=== PATIENT | female | born 1990 | race Caucasian/White ===

== ENCOUNTER 2017-02-14 14:51 | Emergency (ER) | payer OTHER ==
[2017-02-14 15:11] VITALS: RESP 18; TEMP 97.1
[2017-02-14] MEDS ORDERED: DIPH,PERTUS(ACELL)TETVAC-LF 0.5 ML VIAL IM ONE (15:25)
--- NOTE | 2017-02-14 15:50 | XR ---
EXAMINATION TYPE: XR foot complete LT DATE OF EXAM: 02/14/2017 COMPARISON: NONE HISTORY: Pain TECHNIQUE: Three views are submitted. FINDINGS: The osseous structures are intact and the joint spaces are preserved. Mild hypertrophic change first MTP. Small plantar calcaneal spur. There is no acute fracture or dislocation. IMPRESSION: 1. No acute fracture or dislocation. If symptoms persist, follow-up exam in 7 to 10 days could be ob tained. 2. Small plantar calcaneal spur.
--- NOTE | 2017-02-14 16:01 | ED ---
General Adult HPI - General Chief complaint: Wound/Laceration Stated complaint: left foot laceration Time Seen by Provider: 02/14/17 15:20 Source: patient Mode of arrival: wheelchair Limitations: no limitations - History of Present Illness Initial comments: This is a 27-year-old female who presents to the emergency department with chief complaint of left foot laceration. Patient states that approximately one hour prior to arrival she was holding a metal ramp at about a height of 4 feet when it fell from her hands and landed on her left foot. Patient states that her foot is tender and that the laceration she sustained had moderate amount of bleeding. She is unsure if she is up-to-date with her tetanus vaccination. Denies fever, chills, chest pain, shortness of breath, abdominal pain, nausea or vomiting, constipation or diarrhea, dysuria or hematuria, numbness or tingling, headache or vision changes. - Related Data Previous Rx's Medication Instructions Recorded Cephalexin [Keflex] 500 mg PO Q12HR #14 cap 02/14/17 Allergies Allergy/AdvReac Type Severity Reaction Status Date / Time latex Allergy Rash/Hives Verified 02/14/17 15:08 Sulfa (Sulfonamide Allergy Unknown Verified 02/14/17 15:08 Antibiotics) Childhood Review of Systems ROS Statement: Those systems with pertinent positive or pertinent negative responses have been documented in the HPI. ROS Other: All systems not noted in ROS Statement are negative. Past Medical History Past Medical History: Thyroid Disorder Additional Past Medical History / Comment(s): ovarian cyst History of Any Multi-Drug Resistant Organisms: None Reported Past Surgical History: Section Past Anesthesia/Blood Transfusion Reactions: Motion Sickness Additional Past Anesthesia/Blood Transfusion Reaction / Comment(s): pt states has never received anesthesia. mother hx "hard time coming out of anesthesia. brother- "angry coming out of anesthesia Past Psychological History: No Psychological Hx Reported Smoking Status: Never smoker Past Alcohol Use History: None Reported Past Drug Use History: None Reported - Past Family History Mother Family Medical History: Cancer Additional Family Medical History / Comment(s): cervical and skin cancer General Exam - General Exam Comments Initial Comments: General: Awake and alert, well-developed; in no apparent distress. HEENT: Head atraumatic, normocephalic. Pupils are equal, round and reactive to light. Extraocular movements intact. Neck: Supple. Normal ROM. Cardiovascular: Regular rate and rhythm. No murmurs, rubs or gallops. Chest symmetrical. Respiratory: Lungs clear to auscultation bilaterally. No wheezes, rales or rhonchi. Normal respiratory effort with no use of accessory muscles. Musculoskeletal: There is a 2 cm linear laceration at midline of dorsal left foot. Mild swelling and tenderness is noted. Pedal pulses 2+ equal and palpable bilaterally. Sensation is intact. Range of motion of ankle and toes are intact. righSkin: Carter, warm and dry without rashes or lesions. Neurological: Alert and oriented x3. CN II-XII grossly intact. Speech is fluent and answers are appropriate. No focal neuro deficits. Psychiatric: Normal mood and affect. No overt signs of depression or anxiety noted. Limitations: no limitations Course Vital Signs 02/14/17 02/14/17 15:08 16:58 Temperature 97.1 F L 97.1 F L Pulse Rate 98 78 Respiratory 18 18 Rate Blood Pressure 134/79 130/70 O2 Sat by Pulse 98 98 Oximetry Procedures - Laceration Laceration #1 Consent Obtained: verbal consent Indication: laceration Site: foot (left dorsal foot) Size (cm): 2 Description: linear Depth: simple, single layer Anesthetic Used: lidocaine 1% Anesthesia Technique: local infiltration Amount (mls): 3 Pre-repair: wound explored, irrigated extensively, deep structures intact Type of Sutures: nylon Size of Sutures: 4-0 Number of Sutures: 5 Technique: simple, interrupted Patient Tolerated Procedure: well, no complications Medical Decision Making - Medical Decision Making This is a 27 year old female who presented to the emergency department with chief complaint of left foot laceration. Patient received 5 sutures and tolerated the procedure well. Patient was discharged home with a prescription for Keflex. X-ray of left foot revealed no acute fracture or dislocation. She is in no acute distress at this time and is in agreement to plan. She voices understanding. Patient is to have her sutures removed in 10-14 days either here at the emergency department or with primary care provider. - Radiology Data Radiology results: report reviewed Left foot x-ray findings: The osseous structures are intact and the joint spaces are preserved. Mild hypertrophic change first MTP. Small plantar calcaneal spur. There is no acute fracture or dislocation. Disposition Clinical Impression: Laceration of left foot Disposition: HOME SELF-CARE Condition: Good Instructions: Laceration (ED) Additional Instructions: Please have sutures removed in 10-14 days here at the emergency department or with your primary care provider. Please look for any signs of infection including redness, warmth or increased tenderness. Please follow up with your primary care provider in 1-2 days. Please return to emergency department if symptoms worsen or any concerns arise. Prescriptions: Cephalexin [Keflex] 500 mg PO Q12HR #14 cap Referrals: None,Stated [Primary Care Provider] - 1-2 days Time of Disposition: 16:40
[2017-02-14 17:00] VITALS: BP 130/70; PULSE 78
== END 2017-02-14 16:45 | disposition home or self-care (01) ==
LOC: EC 14:51
DX: S91.312A Laceration without foreign body, left foot, initial encounter (principal); Z23 Encounter for immunization; Z88.2 Allergy status to sulfonamides; Z91.040 Latex allergy status; W20.8XXA Other cause of strike by thrown, projected or falling object, initial encounter
CPT/HCPCS: 12001; 90471; 90715; 99283

== ENCOUNTER → 2018-07-16 | Outpatient (CLI) | payer OTHER ==
--- NOTE | 2018-07-16 16:04 | US ---
EXAMINATION TYPE: Ultrasound OB <= 14 week fetus DATE OF EXAM: 07/16/2018 2:36 PM COMPARISON: NONE CLINICAL HISTORY: 28-year-old female Z34.80 normal . Dates/Viability. No spotting. EXAM PERFORMED: Transabdominal (TA) FINDINGS: EXAM MEASUREMENTS: GESTATIONAL AGE / DATING Dates by LMP: (10 weeks/2 days) EDC: 02/09/2019 Dates by Current Scan: (9 weeks/4 days +/- 6 days)) EDC: 02/14/2019 MATERNAL ANATOMY Uterus: 12.3 x 6.1 x 5.4 cm Right Ovary: 2.3 x 1.7 x 1.4 cm Left Ovary: 2.6 x 1.4 x 1.2 cm Post CDS / Adnexa: no free fluid Presence of free fluid: no Presence of corpus luteal cyst: no Presence of subchorionic bleed: Hypoechoic area seen adjacent to GS = 1.5 x 0.7 x 0.4 cm along the an terior inferior aspect GESTATION / SURVEY CRL: 2.8 cm (9 weeks/4 days) MSD: seen, not measured Yolk Sac (normal less than 6mm): 3.8 mm Heart Rate: 174 bpm Rhythm: Normal IUP: Viable IUP Date of LMP: 05/05/2018, Beta HcG (if available): Not available at this time Single live IUP measuring 9 weeks 4 days IMPRESSION: 1. Single live intrauterine with estimated gestational age of 10 weeks 2 days by LMP. Curre nt ultrasound biometry is smaller but concordant (9 weeks 4 days). 2. Small perigestational bleed. Given heart rate at the upper limits of normal (174 bpm) consid er short interval follow-up. 3. Otherwise, complete survey recommended at 18-20 weeks.
== END | disposition home or self-care (01) ==
LOC: RADUSWWP 14:08
PROVIDERS: ATTEND Obstetrics & Gynecology
DX: Z34.81 Encounter for supervision of other normal pregnancy, first trimester (principal); Z3A.10 10 weeks gestation of pregnancy
CPT/HCPCS: 76801

== ENCOUNTER 2019-02-05 09:53 | Inpatient (IN) | payer OTHER ==
[2019-02-01 14:44] VITALS: BMI 46.3
[2019-02-05] MEDS ORDERED: CITRIC ACID-SODIUM CITRATE 15 ML CUP PO ONE (10:29)
[2019-02-05] MEDS ORDERED: LACTATED RINGERS 1,000 ML IV ONE (10:29)
[2019-02-05] MEDS: LACTATED RINGERS 1,000 ML IV SCH ×2 (10:40→16:25)
--- NOTE | 2019-02-05 11:17 | P.HPOB ---
History of Present Illness H&P Date: 02/05/19 Chief Complaint: 39+ weeks, previous section, requesting repeat The patient is a 29-year-old 2 para 1001 who presents at 39+ weeks as established by last menstrual period and confirmed by second trimester ultrasound. She presents for repeat low transverse section having previously undergone a section for breech presentation. This fetus has been thought to be vertex throughout the . Her has been entirely uncomplicated though she is Rh- and received RhoGAM at 28 weeks. Group B strep status is negative. Obstetrical history: 2 para 1001 with 1 previous term section for breech presentation. Current statistics are listed in history present illness. EDC of 02/09/2019 was established by last menstrual period and confirmed by second trimester ultrasound. Laboratory workup demonstrates a blood type of A- with a negative antibody screen. Rubella status is immune. The remainder of the laboratory workup was within normal limits. One hour Glucola was normal and group B strep status is negative. Gynecologic history: Unremarkable with no history of any infections to include STDs. Review of Systems Review of systems is confined to history of present illness. Past Medical History Past Medical History: No Reported History Additional Past Medical History / Comment(s): ovarian cyst History of Any Multi-Drug Resistant Organisms: None Reported Past Surgical History: Section Additional Past Surgical History / Comment(s): wisdom teeth removed 2016 Past Anesthesia/Blood Transfusion Reactions: Motion Sickness Additional Past Anesthesia/Blood Transfusion Reaction / Comment(s): pt states has never received anesthesia. mother hx "hard time coming out of anesthesia. brother- "angry coming out of anesthesia Past Psychological History: No Psychological Hx Reported Smoking Status: Never smoker Past Alcohol Use History: None Reported Past Drug Use History: None Reported - Past Family History Mother Family Medical History: Cancer Additional Family Medical History / Comment(s): cervical and skin cancer Medications and Allergies Home Medications Medication Instructions Recorded Confirmed Type Cholecalciferol (Vitamin D3) 2,000 unit PO DAILY 02/01/19 02/05/19 History [Vitamin D3] Pnv No.95/Ferrous Fum/Folic AC 1 each PO DAILY 02/01/19 02/05/19 History [ Multivitamin Tablet] Allergies Allergy/AdvReac Type Severity Reaction Status Date / Time latex Allergy Rash/Hives Verified 02/05/19 10:28 Sulfa (Sulfonamide Allergy Unknown Verified 02/05/19 10:28 Antibiotics) Childhood Exam Vital Signs Temp Pulse Resp BP Pulse Ox 02/05/19 10:10 98.8 F 83 16 126/76 95 Intake and Output 02/04/19 02/05/19 02/05/19 22:59 06:59 14:59 Other: Weight 113.398 kg In general, this is a well-developed, moderately obese white female in no acute distress. Her heart has a regular rhythm and rate without murmur. Her lungs are clear to auscultation bilaterally in all jacinto. Her abdomen is gravid, nondistended, has normal active bowel sounds, soft, nontender, and without any palpable masses aside from uterine fundus. Her extremities without any cyanosis, clubbing, or significant edema and are nontender to palpation bilaterally. Digital cervical examination is deferred. Assessment and Plan (1) Term Current Visit: Yes Status: Acute Code(s): Z34.90 - ENCNTR FOR SUPRVSN OF NORMAL , UNSP, UNSP TRIMESTER SNOMED Code(s): 68815509 (2) Previous section Current Visit: Yes Status: Acute Code(s): Z98.891 - HISTORY OF UTERINE SCAR FROM PREVIOUS SURGERY SNOMED Code(s): 605010882 Plan: The patient is admitted for repeat low transverse section. The risks and complications the procedure have been discussed and the patient has understood and agreed to proceed.
[2019-02-05] MEDS ORDERED: PHENYLEPHRINE-0.9% NACL SYG 1 MG/10 ML SYRINGE ONE (11:25)
[2019-02-05] MEDS ORDERED: ONDANSETRON 4 MG/2 ML VIAL ONE (11:25)
[2019-02-05] MEDS ORDERED: OXYTOCIN 10 UNIT/ML 1 ML VIAL ONE (11:25)
[2019-02-05] MEDS ORDERED: MORPHINE SULFATE (PF) 0.3 MG/0.3 ML SYR ONE (11:25)
[2019-02-05 11:34] LABS: Basophils % (A) 0 %; Eosinophils % (A) 0 %; HGB 13.4 gm/dL (11.4-16.0); Lymphocytes # (A) 1.6 k/uL (1.0-4.8); Lymphocytes % (A) 16 %; MCHC 34.4 g/dL (31.0-37.0); MCV 93.1 fL (80.0-100.0); Mean Platelet Volume 7.3; Monocytes # (A) 0.4 k/uL (0-1.0); Monocytes % (A) 4 %; Neutrophils # (A) 7.7 k/uL (1.3-7.7); Neutrophils % (A) 78 %; Platelet Count 180 k/uL (150-450); RBC 4.19 m/uL (3.80-5.40); RDW 14.5 % (11.5-15.5); WBC 9.9 k/uL (3.8-10.6)
[2019-02-05] MEDS ORDERED: METOCLOPRAMIDE 5 MG/ML 2 ML VIAL IVP PRN (12:28)
[2019-02-05] MEDS ORDERED: diphenhydrAMINE 50 MG CAP PO PRN (12:28)
[2019-02-05] MEDS ORDERED: diphenhydrAMINE 25 MG CAP PO PRN (12:28)
[2019-02-05] MEDS ORDERED: HYDROcodone/APAP 5-325MG 1 EACH TAB PO PRN (12:28)
[2019-02-05] MEDS ORDERED: ACETAMINOPHEN TAB 325 MG TAB PO PRN (12:28)
[2019-02-05] MEDS ORDERED: SIMETHICONE 80 MG CHEWABLE PO PRN (12:28)
[2019-02-05] MEDS ORDERED: ZOLPIDEM 5 MG TAB PO PRN (12:28)
[2019-02-05] MEDS ORDERED: diphenhydrAMINE 50 MG/ML 1 ML VIAL IVP PRN ×2 (12:28)
[2019-02-05] MEDS ORDERED: HYDROcodone/APAP 7.5-325MG 1 EACH TAB PO PRN (12:28)
[2019-02-05] MEDS ORDERED: NALOXONE 0.4 MG/ML 1 ML VIAL IV PRN (12:28)
[2019-02-05] MEDS ORDERED: ONDANSETRON 4 MG/2 ML VIAL IVP PRN (12:28)
[2019-02-05] MEDS ORDERED: OXYTOCIN 20 UNITS/1000 ML NS 1,000 ML IV SCH (12:30)
[2019-02-05] MEDS ORDERED: LACTATED RINGERS 1,000 ML IV SCH (12:30)
--- NOTE | 2019-02-05 12:37 | P.OP ---
Date of Procedure: 02/05/19 Preoperative Diagnosis: #1. 39-3/7 weeks, previous section, declining trial of labor Postoperative Diagnosis: Same Procedure(s) Performed: #1. Repeat low transverse section Anesthesia: spinal Surgeon: Levi Soto Catalogue Clerk #1: Li Diallo Estimated Blood Loss (ml): 600 IV fluids (ml): 1,000 Urine output (ml): 200 Pathology: none sent Condition: stable Disposition: floor Operative Findings: The patient was taken the operating room where she was delivered of a viable 8 lbs. 2 oz. baby boy with Apgars of 8 at 1 minute and 9 at 5 minutes delivered in the right occiput transverse position. There was a loose nuchal cord 1 which was reduced after delivery of the head and prior to delivery of the body. The placenta was delivered manually, intact, and grossly normal with a grossly normal three-vessel cord. The uterus, tubes, and ovaries were entirely normal aside from the lower uterine segment being fairly thin despite no labor. Description of Procedure: The patient was prepped and draped in usual fashion after spinal anesthesia was administered by the anesthesiologist. A Pfannenstiel incision was made through pre-existing scar and extended into the abdominal cavity without difficulty. The bladder peritoneum was noted to be scarred somewhat high from the previous section. It was therefore elevated, incised, and reflected distally. A 2 cm incision was made in the transverse plane of the lower uterine segment to enter the uterus at which time clear fluid was noted. The incision was extended in both directions using the bandage scissors. The head was delivered up and through the incision where the nose and mouth were thoroughly suctioned. A loose nuchal cord was noted and reduced prior to delivery. The remainder of the infant was delivered onto the field where the cord was doubly clamped, cut, and the passed for resuscitative measures with weight and Apgars as noted above. cord blood was collected for evaluation for the necessity of RhoGAM. A segment of cord was then doubly clamped, cut, and set aside should cord gases become necessary. The placenta was delivered manually and intact as noted above. The uterus was exteriorized and the interior cavity of the uterus swept of any remaining placental or membranous fragments. The margins of the incision were grasped with Degroot clamps and the incision closed in 2 layers. The first layer was a running locking stitch of 0 chromic catgut from margin to margin followed by a running imbricating layer of 0 chromic catgut from margin to margin. Any small points of bleeding were made hemostatic with the Bovie. The posterior cul-de-sac was suctioned with a guard and a laparotomy sponge was placed with no significant fluid noted. The uterus and ovaries were entirely normal as noted above. The uterus was replaced within the abdominal cavity and the gutters were swept of any remaining blood, fluid, or clot. The incision was reexamined and any small points of bleeding were further made hemostatic with the Bovie. Once hemostasis had been established, the parietal peritoneum was loosely reapproximated in the layer of muscles examined and found to be hemostatic. The fascia was closed with 2 running stitches of 0 Vicryl proceeding from lateral margins to the midpoint. The subcutaneous tissues were irrigated, made hemostatic with the Bovie, and reapproximated with a running stitch of 30 plain catgut. The skin was reapproximated with a running subcuticular stitch of 4-0 Vicryl. Followed by half-inch Steri-Strips placed with Mastisol. Estimated blood loss for the case was approximately 600 mL. There were no complications. All sponge, instrument, and needle counts were correct. The patient tolerated the procedure well and proceeded to the recovery room in stable condition. Both mother and are resting comfortably in recovery.
[2019-02-05] MEDS ORDERED: INFLUENZA VACCINE (6 MOS+) 60 MCG/0.5 ML SYRINGE IM ONE (13:47)
[2019-02-05] MEDS: KETOROLAC 30 MG/ML 1 ML VIAL IVP PRN (18:11)
[2019-02-05 23:09] VITALS: RESP 16
[2019-02-06 06:07] LABS: Basophils % (A) 0 %; Eosinophils % (A) 0 %; HCT 34.1 % (34.0-46.0); HGB 11.6 gm/dL (11.4-16.0); Lymphocytes # (A) 1.4 k/uL (1.0-4.8); Lymphocytes % (A) 13 %; MCH 31.8 pg (25.0-35.0); MCHC 34.1 g/dL (31.0-37.0); MCV 93.2 fL (80.0-100.0); Mean Platelet Volume 7.2; Monocytes # (A) 0.4 k/uL (0-1.0); Monocytes % (A) 4 %; Neutrophils # (A) 8.3 k/uL (1.3-7.7); Neutrophils % (A) 81 %; Platelet Count 144 k/uL (150-450); RBC 3.66 m/uL (3.80-5.40); RDW 14.6 % (11.5-15.5); WBC 10.3 k/uL (3.8-10.6)
--- NOTE | 2019-02-06 06:48 | P.PNOBGPC ---
Subjective - Subjective Patient reports: Reports appetite normal, Reports voiding normally, Reports pain well controlled, Reports ambulating normally : doing well Objective - Vital Signs Latest vital signs: Vital Signs Temp Pulse Resp BP Pulse Ox 02/06/19 04:00 98.1 F 78 16 125/71 98 02/06/19 00:00 98.1 F 76 16 130/73 98 02/05/19 20:00 98 F 71 16 112/64 97 02/05/19 17:30 97.7 F 75 18 120/71 97 02/05/19 14:30 96.7 F L 60 18 115/64 02/05/19 14:00 67 18 119/65 02/05/19 13:30 97.3 F L 61 18 111/66 99 02/05/19 13:15 70 16 104/64 98 02/05/19 13:00 67 16 99/56 02/05/19 12:45 74 18 119/66 97 02/05/19 12:30 96.6 F L 77 18 110/83 97 02/05/19 10:10 98.8 F 83 16 126/76 95 Intake and Output 02/05/19 02/05/19 02/06/19 14:59 22:59 06:59 Intake Total 1240 200 Output Total 750 120 200 Balance 490 -120 0 Intake: IV 1000 Oral 240 200 Output: Urine 150 120 200 Estimated Blood Loss 600 Other: Voiding Method Indwelling Catheter Indwelling Catheter Weight 113.398 kg - Exam Extremities: Present: normal Abdomen: Present: normal appearance, soft. Absent: distention, tenderness Incision: Present: normal, dry, intact Uterus: Present: normal, firm (The uterine fundus is tonic and nontender just below the umbilicus.) - Labs Labs: Abnormal Lab Results - Last 24 Hours (Table) 02/06/19 Range/Units 05:40 RBC 3.66 L (3.80-5.40) m/uL Plt Count 144 L (150-450) k/uL Neutrophils # 8.3 H (1.3-7.7) k/uL Assessment and Plan (1) Term Current Visit: Yes Status: Acute Code(s): Z34.90 - ENCNTR FOR SUPRVSN OF NORMAL , UNSP, UNSP TRIMESTER SNOMED Code(s): 28256987 (2) Previous section Current Visit: Yes Status: Acute Code(s): Z98.891 - HISTORY OF UTERINE SCAR FROM PREVIOUS SURGERY SNOMED Code(s): 274182351 (3) delivery delivered Current Visit: No Status: Acute Code(s): O82 - ENCOUNTER FOR DELIVERY WITHOUT INDICATION SNOMED Code(s): 406016876 Plan: Continue routine and postoperative care. I have encouraged her to ambulate at least 4 times or more daily and would otherwise anticipate discharge home tomorrow pending no complications.
--- NOTE | 2019-02-06 07:06 | P.PN ---
Progress Note - Text Progress Note Date: 02/06/19 Patient without complaints. Denies headache. Ambulating without paresthesia or weakness. Pruritis and pain treated. VSS Back - spinal site clean and dry A/P POD#1 s/p with spinal duramorph - doing well
[2019-02-06] MEDS: KETOROLAC 30 MG/ML 1 ML VIAL IVP PRN (08:30)
[2019-02-06] MEDS: SENNOSIDES-DOCUSATE SODIUM 1 EACH TAB PO SCH ×3 (10:17→23:37)
[2019-02-06] MEDS: IBUPROFEN 600 MG TAB PO PRN ×2 (15:12→23:36)
[2019-02-07] MEDS: IBUPROFEN 600 MG TAB PO PRN (07:54)
[2019-02-07 08:37] VITALS: BP 127/81; PULSE 85; TEMP 98.4
--- NOTE | 2019-02-07 08:44 | P.DS ---
Providers Date of admission: 02/05/19 09:53 Expected date of discharge: 02/07/19 Attending physician: Levi Soto Primary care physician: Piyush Herrera - Discharge Diagnosis(es) (1) Term Current Visit: Yes Status: Acute (2) Previous section Current Visit: Yes Status: Acute (3) delivery delivered Current Visit: No Status: Acute Hospital Course: The patient is a 29-year-old 2 para 1001 admitted at 39+ weeks by good dating parameters. She is admitted for repeat low transverse section having had a previous . Her was uncomplicated and group B strep status is negative. She is Rh- and received RhoGAM at 28 weeks. On labor and delivery, she was taken the operating room where she was delivered of a viable 8 lbs. 2 oz. baby boy with Apgars of 8 at 1 minute and 9 at 5 minutes. Her and postoperative courses were unremarkable with vital signs being stable and her temperature was afebrile throughout. She was deemed stable for discharge on and postoperative day #2 was discharged home to follow-up in the office in 2 weeks for an incision check and 6 weeks routinely. Discharge instructions included calling for any significantly increased bleeding or foul-smelling lochia, significantly increased fever abdominal pain, perineal complaints, breast complaints, incisional complaints, or anything else that concerned her. She is additionally instructed to have nothing in the vagina for at least 6 weeks time to include intercourse and to abstain from any heavy lifting over the same period of time. She was lastly instructed to do no driving until off of all pain medications or 2 weeks' time, whichever came first. She understood her instructions and agrees to follow up as noted above. Discharge medications included only [id number] analgesic pain medications as well as a prescription for Tylenol No. 3, 1-2 by mouth every 6 hours when necessary pain, #20 dispensed with no refills. Maternal blood type is A- and f etal cord blood was sent for evaluation for the necessity of RhoGAM prior to discharge. Rubella status is immune. Discharge hemoglobin and hematocrit were 11.6 and 34.1 respectively Procedures: #1. Repeat low transverse section Patient Condition at Discharge: Stable Plan - Discharge Summary Discharge Rx Participant: No New Discharge Prescriptions: No Action Pnv No.95/Ferrous Fum/Folic AC [ Multivitamin Tablet] 1 each PO DAILY Cholecalciferol (Vitamin D3) [Vitamin D3] 2,000 unit PO DAILY Discharge Medication List Cholecalciferol (Vitamin D3) [Vitamin D3] 2,000 unit PO DAILY 02/01/19 [History] Pnv No.95/Ferrous Fum/Folic AC [ Multivitamin Tablet] 1 each PO DAILY 02/01/19 [History] Follow up Appointment(s)/Referral(s): Levi Soto MD [STAFF PHYSICIAN] - 2 Weeks Discharge Disposition: HOME SELF-CARE
[2019-02-07] MEDS: SENNOSIDES-DOCUSATE SODIUM 1 EACH TAB PO SCH (10:31)
== END 2019-02-07 11:55 | disposition home or self-care (01) | DRG 788 ==
LOC: 4FBP 09:53
PROVIDERS: ADMIT Obstetrics & Gynecology; ATTEND Obstetrics & Gynecology
PROC: 10D00Z1 Extraction of Products of Conception, Low, Open Approach (ICD-10-PCS; principal; 2019-02-05 12:00)
DX: O34.211 Maternal care for low transverse scar from previous cesarean delivery (principal); O69.81X0 Labor and delivery complicated by cord around neck, without compression, not applicable or unspecified; Z37.0 Single live birth; Z3A.39 39 weeks gestation of pregnancy; Z80.8 Family history of malignant neoplasm of other organs or systems; L29.9 Pruritus, unspecified; Z88.2 Allergy status to sulfonamides; Z91.040 Latex allergy status
CPT/HCPCS: 85025; 86850; 86900; 86901; 90686

== ENCOUNTER → 2021-07-29 | Outpatient (CLI) | payer OTHER ==
--- NOTE | 2021-07-29 20:50 | CT ---
EXAMINATION TYPE: CT sinus wo con DATE OF EXAM: 07/29/2021 COMPARISON: NONE HISTORY: Acute sinusitis. CT DLP: 538.60 mGycm. Automated Exposure Control for Dose Reduction was Utilized. TECHNIQUE: CT scan of the sinuses is performed without contrast, axial images are obtained, coronal r eformatted images are also reviewed. FINDINGS: Moderate mucosal thickening with some dependent fluid in the left maxillary sinus otherwise paranasal sinuses are clear. The ostiomeatal complex is patent on the right but occluded on the lef t due to antral mucosal thickening. Nasal septum deviated to right of midline. Visualized portion of mastoid air cells show no abnormal opacification. The globes are intact bilate rally. Visualized brain parenchyma is unremarkable. IMPRESSION: Acute on chronic left maxillary sinusitis..
== END | disposition home or self-care (01) ==
LOC: RADCTMAIN 07-28 17:15
PROVIDERS: ATTEND Internal Medicine
DX: J32.0 Chronic maxillary sinusitis (principal)
CPT/HCPCS: 70486

== ENCOUNTER → 2022-10-03 | Outpatient (CLI) | payer OTHER ==
--- NOTE | 2022-10-03 11:41 | USB ---
Reason for Exam: Clinical finding. Patient History: Menarche at age 11. First Full-Term at age 27. Premenopausal. Currently using Hormonal Contraceptives, starting at age 26. Maternal grandmother had breast cancer under age 50. Maternal aunt had breast cancer under age 50. Maternal aunt had breast cancer under age 50. Maternal cousin had breast cancer under age 50. Mother had breast cancer under age 50. Technique: Method: Whole Breast Handheld. Findings: The whole breast of the right breast, the axilla of the right breast and the retroareolar of the right breast were scanned. A complete US of all four quadrants of the breast and retro-areolar region were reviewed. Evaluation of the axillary tail was performed. There is a single dilated duct in the region of the right nipple with hypoechoic suggested elongated intraductal mass with internal vascularity identified measuring at least 1.8 x 0.3 cm. Overall Assessment: Incomplete: need additional imaging evaluation, BI-RAD 0 Management: Diagnostic Mammogram of both breasts. A clinical breast exam by your physician is recommended on an annual basis and results should be correlated with mammographic findings. This exam should not preclude additional follow-up of suspicious palpable abnormalities. Results were given to the patient verbally at the time of exam. Electronically signed and approved by: Jarod French D.O.
--- NOTE | 2022-10-03 11:42 | MM ---
Reason for Exam: Clinical finding. Baseline mammogram. Indicated Problems: Bloody discharge of the right side for 3 Week(s). Patient History: Menarche at age 11. First Full-Term at age 27. Premenopausal. Currently using Hormonal Contraceptives, starting at age 26. Maternal grandmother had breast cancer under age 50. Maternal aunt had breast cancer under age 50. Maternal aunt had breast cancer under age 50. Maternal cousin had breast cancer under age 50. Mother had breast cancer under age 50. Prior Study Comparison: Patient's first Mammogram. Tissue Density: The breast tissue is heterogeneously dense. This may lower the sensitivity of mammography. Findings: Analyzed By CAD. No definitive mass within either breast. No definitive abnormality corresponding to ultrasound findings of the right breast intraductal mass. No suspicious group of microcalcifications within either breast. No architectural distortion within either breast. Overall Assessment: Suspicious, BI-RAD 4 Management: Ultrasound Core Biopsy of the right breast. A clinical breast exam by your physician is recommended on an annual basis and results should be correlated with mammographic findings. This exam should not preclude additional follow-up of suspicious palpable abnormalities. Results were given to the patient verbally at the time of exam. Electronically signed and approved by: Jarod French D.O.
== END | disposition home or self-care (01) ==
LOC: RADUSWWP 10:23
PROVIDERS: ATTEND Obstetrics & Gynecology
DX: N64.52 Nipple discharge (principal); N64.4 Mastodynia; Z80.3 Family history of malignant neoplasm of breast
CPT/HCPCS: 77066; 76641; G0279; 77062

== ENCOUNTER → 2022-12-28 | Outpatient (CLI) | payer OTHER ==
[2022-12-28 15:40] LABS: Chol/HDL Ratio 5.03 Ratio; LDL Cholesterol,Calculated 146.3 mg/dL (0.0-131.0); T4, Free (Free Thyroxine) 1.02 ng/dL (0.80-1.80)
[2022-12-28 15:48] LABS: Hepatitis A Antibody IgM Nonreactive; Hepatitis B Core IgM Nonreactive; Hepatitis B Surface Antigen Nonreactive; Hepatitis C IgG Antibody Nonreactive
== END | disposition home or self-care (01) ==
LOC: LABWHC1 10:25
PROVIDERS: ATTEND Internal Medicine Endocrinology, Diabetes & Metabolism
DX: E06.3 Autoimmune thyroiditis (principal); R63.5 Abnormal weight gain; Z68.42 Body mass index [BMI] 45.0-49.9, adult
CPT/HCPCS: 36415; 80061; 80074; 82565; 83036; 84305; 84439; 84443

== ENCOUNTER → 2023-08-21 | Outpatient (CLI) | payer OTHER ==
--- NOTE | 2023-08-21 20:45 | MR ---
EXAMINATION TYPE: MR brain wo/w con DATE OF EXAM: 08/21/2023 COMPARISON: None HISTORY: Vision problems for 1 year. TECHNIQUE: Multiplanar, multisequence images of the brain and brainstem is performed without and with IV contras t, utilizing 10 mL intravenous Gadavist . Findings: On the T1-weighted sagittal images, the midline structures including the craniovertebral junction rel ationships appear normal. The ventricles, basal cisterns and sulci over the convexities are within normal limits and there is n o mass effect or shift of midline structures No abnormal signal intensity is seen throughout the brain parenchyma. Based on diffusion-weighted keith ging, there is no diffusion restriction or acute ischemic event. Following contrast administration, there is no pathological enhancement. The posterior fossa including the brainstem, fourth ventricle and cerebellar pontine angles appear no rmal. Intraorbital contents are normal and symmetric. Visualized paranasal sinuses and mastoid air cells ar e well aerated. IMPRESSION: No significant abnormality seen.
== END | disposition home or self-care (01) ==
LOC: RADMRIMAIN 18:01
PROVIDERS: ATTEND Family Medicine
DX: H53.8 Other visual disturbances (principal); H53.9 Unspecified visual disturbance
CPT/HCPCS: 70553; A9585